=== PATIENT | female | born 1940 | race Two or more races ===

== ENCOUNTER 2016-11-09 19:45 | Inpatient (IN) | payer OTHER ==
[~2016-11-09] VITALS: Ht 149.9 cm; Wt 51.9 kg
[2016-11-09 08:15] VITALS: BP 139/97
[~2016-11-09 19:45] MED LIST: ALPR0.25 PO; ESOM40CA39 PO; LOSA25TA9 PO; METOPROLOL PO; TRAM50TA2 PO
[2016-11-09 20:15] VITALS: BP 139/97
[2016-11-09] MEDS ORDERED: LOSA25TA9 PO (21:15)
[2016-11-09 22:00] VITALS: BP 139/97
[2016-11-09 23:30] LABS: Basophils # (auto) 0 uL; Basophils % (auto) 0.8 % (0.0-2.0); CONDITION Y; Eosinophils # (auto) 0.3 uL; Hematocrit 38.2 % (36.0-46.0); Hemoglobin 12.5 g/dL (12.2-16.2); Lymphocytes # (auto) 2.1 uL; Lymphocytes % (auto) 32.9 % (10.0-50.0); Mean Corpuscular Hemoglobin 29.2 pg (28.0-32.0); Mean Corpuscular Hgb Conc. 32.7 g/dL (32.0-36.0); Mean Corpuscular Volume 89.2 fL (80.0-100.0); Mean Platelet Volume 7.7 fL (7.4-10.4); Monocytes # (auto) 0.5 uL; Monocytes % (auto) 7.5 % (0.0-12.0); Neutrophils # (auto) 3.5 uL; Neutrophils % (auto) 53.8 % (37.0-80.0); Platelet Count (auto) 285 10^3/uL (140-450); Red Cell Distribution Width 18.4 % (11.6-16.0); White Blood Cell 6.5 10^3/uL (4.4-10.8)
[2016-11-09 23:44] LABS: INR 1.1 (0.9-1.15); Partial Thromboplastin Time 29.9 sec (22.64-33.71)
[2016-11-09 23:54] LABS: Albumin 4.5 g/dL (3.4-5.0); BUN/Creatinine Ratio 37.3; Calcium 8.3 mg/dL (8.5-10.1); Magnesium 2.1 mg/dL (1.6-2.6); Potassium 4.2 mmol/L (3.5-5.1)
[2016-11-09 23:58] LABS: Bilirubin, Total 0.6 mg/dL (0.2-1.0); Total Protein 7.3 g/dL (6.4-8.2)
[2016-11-10 00:01] LABS: Urine Bilirubin Negative (Negative); Urine Blood Negative /uL (Negative); Urine Color Yellow (Yellow); Urine Glucose Normal (Normal); Urine Ketone Negative (Negative); Urine Nitrite Negative (Negative); Urine RBC <1 /hpf (0 - 4); Urine Squamous Epithelial Cell FEW /hpf (<5); Urine Urobilinogen Normal (Negative); Urine pH 6.5 (5.0-8.0)
[2016-11-10] MEDS ORDERED: ONDANSETRON HCL 4 MG/2 ML VIAL IV PRN (00:30)
[2016-11-10] MEDS ORDERED: MORPHINE SULF INJ 2 MG/ML SYRINGE 1ML IV PRN (00:30)
[2016-11-10] MEDS ORDERED: NITROGLYCERIN 0.4 MG SL TAB SL PRN (00:30)
[2016-11-10] MEDS: ALPRAZolam 0.25 MG TAB PO PRN ×2 (01:33→20:19)
[2016-11-10] MEDS: SODIUM CHLORIDE 0.9% 1,000 ML IV SCH ×2 (01:34→16:56)
[2016-11-10 05:00] VITALS: BP 131/77
[2016-11-10 07:16] LABS: Cholesterol 95 mg/dL (< 200); HDL Cholesterol 41 mg/dL (40-59); LDL Cholesterol 47 mg/dL (< 100); Triglycerides 71 mg/dL (< 150)
[2016-11-10 07:56] VITALS: BP 130/85
[2016-11-10] MEDS ORDERED: LIDOCAINE 2%HCL (LOCAL ANESTH.) INJ 20ML MDV ONE (08:59)
[2016-11-10] MEDS ORDERED: IODIXANOL 320MG/ML 100ML BTL IV ONE (09:03)
[2016-11-10] MEDS ORDERED: ANGIOMAX 250 MG VIAL IV ONE (09:28)
[2016-11-10] MEDS ORDERED: MIDAZOLAM HCL 1MG/1ML-2 ML VIAL ONE (09:28)
[2016-11-10] MEDS ORDERED: fentaNYL CITRATE 100 MCG/2 ML VL ONE (09:28)
[2016-11-10] MEDS ORDERED: SODIUM CHL 0.9% 0 ML ONE (09:29)
[2016-11-10] MEDS ORDERED: VERAPAMIL 2.5MG/ML INJ 2ML VIAL IV ONE (09:30)
[2016-11-10] MEDS ORDERED: hydrALAZINE HCL 20 MG/ML VL ONE (09:46)
[2016-11-10] MEDS ORDERED: ASPirin 81 mg TAB PO SCH (10:00)
[2016-11-10] MEDS ORDERED: FAMOTIDINE 20 MG TAB PO SCH (10:00)
[2016-11-10 12:05] VITALS: BP 132/80
[2016-11-10] MEDS: ENOXAPARIN SOD 40 MG/0.4 ML SYRINGE SC SCH (12:12)
[2016-11-10] MEDS: LOSARTAN POTASSIUM 25 MG TAB PO SCH (12:12)
[2016-11-10] MEDS: FAMOTIDINE 20 MG TAB PO SCH (12:12)
[2016-11-10] MEDS: ACETAMINOPHEN 325 MG TAB PO PRN (15:06)
[2016-11-10 16:59] VITALS: BP 126/79
[2016-11-10] MEDS: METOPROLOL TARTRATE 25 MG TAB PO SCH (21:27)
[2016-11-10 21:30] VITALS: BP 129/64
[2016-11-10] MEDS ORDERED: ATORVASTATIN 20 MG TAB PO SCH (22:00)
[2016-11-11] MEDS: ACETAMINOPHEN 325 MG TAB PO PRN (03:53)
[2016-11-11 05:39] VITALS: BP 137/73
[2016-11-11] MEDS: ALPRAZolam 0.25 MG TAB PO PRN (06:13)
[2016-11-11 06:36] LABS: Basophils # (auto) 0 uL; Basophils % (auto) 0.4 % (0.0-2.0); CONDITION Y; Eosinophils # (auto) 0.4 uL; Eosinophils % (auto) 5.2 % (0.0-7.0); Hematocrit 35.6 % (36.0-46.0); Hemoglobin 11.6 g/dL (12.2-16.2); Lymphocytes # (auto) 1.5 uL; Lymphocytes % (auto) 21.7 % (10.0-50.0); Mean Corpuscular Hemoglobin 29.4 pg (28.0-32.0); Mean Corpuscular Hgb Conc. 32.6 g/dL (32.0-36.0); Mean Corpuscular Volume 90.2 fL (80.0-100.0); Mean Platelet Volume 7.9 fL (7.4-10.4); Monocytes # (auto) 0.5 uL; Monocytes % (auto) 7.4 % (0.0-12.0); Neutrophils # (auto) 4.4 uL; Neutrophils % (auto) 65.3 % (37.0-80.0); Platelet Count (auto) 279 10^3/uL (140-450); Red Cell Distribution Width 18.3 % (11.6-16.0); White Blood Cell 6.8 10^3/uL (4.4-10.8)
[2016-11-11 06:46] LABS: Albumin 3.7 g/dL (3.4-5.0); BUN/Creatinine Ratio 32.8; Calcium 7.6 mg/dL (8.5-10.1)
[2016-11-11 06:58] LABS: Total Protein 6.5 g/dL (6.4-8.2)
[2016-11-11 09:00] VITALS: BP 147/50
[2016-11-11] MEDS: ENOXAPARIN SOD 40 MG/0.4 ML SYRINGE SC SCH (09:49)
[2016-11-11] MEDS: LOSARTAN POTASSIUM 25 MG TAB PO SCH (09:52)
[2016-11-11] MEDS: FAMOTIDINE 20 MG TAB PO SCH (09:53)
[2016-11-11] MEDS: METOPROLOL TARTRATE 25 MG TAB PO SCH (09:53)
[2016-11-11] MEDS: SODIUM CHLORIDE 0.9% 1,000 ML IV SCH (09:54)
[2016-11-11] MEDS ORDERED: ASPirin 81 mg TAB PO SCH (10:00)
[2016-11-11] MEDS ORDERED: THROAT LOZENGES(CEPASTAT) MT PRN (11:30)
[2016-11-11 13:00] VITALS: BP 153/69
[2016-11-11] MEDS ORDERED: ASPI81CH43 PO (14:57)
[2016-11-11] MEDS ORDERED: ATOR20TA50 PO (14:57)
[2016-11-11] MEDS ORDERED: MET25T PO (14:58)
== END 2016-11-11 20:08 | disposition home or self-care (01) | DRG 282 ==
LOC: TELE-WESTW 19:45
PROVIDERS: ADMIT Internal Medicine; ATTEND Internal Medicine
PROC: 4A023N7 Measurement of Cardiac Sampling and Pressure, Left Heart, Percutaneous Approach (ICD-10-PCS; principal; 2016-11-10)
PROC: B2111ZZ Fluoroscopy of Multiple Coronary Arteries using Low Osmolar Contrast (ICD-10-PCS; 2016-11-10)
DX: I21.4 Non-ST elevation (NSTEMI) myocardial infarction (principal); I11.9 Hypertensive heart disease without heart failure; I25.10 Atherosclerotic heart disease of native coronary artery without angina pectoris; F17.200 Nicotine dependence, unspecified, uncomplicated; F12.10 Cannabis abuse, uncomplicated; F32.9 Major depressive disorder, single episode, unspecified; M19.90 Unspecified osteoarthritis, unspecified site; J44.9 Chronic obstructive pulmonary disease, unspecified; Z80.8 Family history of malignant neoplasm of other organs or systems; Z82.49 Family history of ischemic heart disease and other diseases of the circulatory system; Z85.830 Personal history of malignant neoplasm of bone; Z90.49 Acquired absence of other specified parts of digestive tract; Z90.710 Acquired absence of both cervix and uterus; Z88.5 Allergy status to narcotic agent
CPT/HCPCS: 36415; 71010; 80053; 80061; 80307; 81001; 83735; 84443; 84484; 85025; 85610; 85730; 87081; 93005; 93458; 99152; J2250; Q9967

== ENCOUNTER 2016-12-29 09:02 | Observation (INO) | payer OTHER ==
[~2016-12-29] VITALS: Ht 152.4 cm; Wt 59.0 kg
[~2016-12-29 09:02] MED LIST changes: +ASPI81CH43 PO; +ATOR20TA50 PO; +MET25T PO
[2016-12-29 09:37] LABS: Basophils # (auto) 0.1 uL; Basophils % (auto) 1.3 % (0.0-2.0); Eosinophils # (auto) 0.2 uL; Eosinophils % (auto) 3.5 % (0.0-7.0); Hematocrit 41.1 % (36.0-46.0); Hemoglobin 13.6 g/dL (12.2-16.2); Lymphocytes # (auto) 1.2 uL; Lymphocytes % (auto) 21.6 % (10.0-50.0); Mean Corpuscular Hemoglobin 30.2 pg (28.0-32.0); Mean Corpuscular Hgb Conc. 33.2 g/dL (32.0-36.0); Mean Platelet Volume 6.7 fL (7.4-10.4); Monocytes # (auto) 0.4 uL; Neutrophils # (auto) 3.7 uL; Neutrophils % (auto) 66.6 % (37.0-80.0); Nucleated Red Blood Cells % 0.2 %; Platelet Count (auto) 333 10^3/uL (140-450); Red Cell Distribution Width 18.3 % (11.6-16.0); White Blood Cell 5.6 10^3/uL (4.4-10.8)
[2016-12-29 09:52] LABS: Albumin 4.8 g/dL (3.4-5.0); BUN/Creatinine Ratio 26.9; Calcium 9.1 mg/dL (8.5-10.1); Potassium 4.6 mmol/L (3.5-5.1)
[2016-12-29 09:54] LABS: Bilirubin, Total 0.9 mg/dL (0.2-1.0); Total Protein 8.1 g/dL (6.4-8.2)
[2016-12-29] MEDS ORDERED: SODIUM CHLORIDE 0.9% 1,000 ML IVB ONE (11:11)
[2016-12-29] MEDS ORDERED: ONDANSETRON HCL 4 MG/2 ML VIAL IV ONE ×3 (11:15→13:30)
[2016-12-29] MEDS ORDERED: KETOROLAC TROMETH 30 MG/ML 1ML VIAL IV ONE (11:15)
[2016-12-29 11:42] LABS: INR 1.09 (0.9-1.15); Partial Thromboplastin Time 29.2 sec (22.64-33.71); Prothrombin Time 11.9 sec (9.37-12.3)
[2016-12-29 11:49] LABS: Urine Bilirubin Negative (Negative); Urine Blood Negative /uL (Negative); Urine Color Yellow (Yellow); Urine Glucose Normal (Normal); Urine Ketone Negative (Negative); Urine Mucus FEW (None Seen); Urine Nitrite Negative (Negative); Urine RBC <1 /hpf (0 - 4); Urine Squamous Epithelial Cell FEW /hpf (<5); Urine Urobilinogen Normal (Negative)
[2016-12-29 13:13] VITALS: BP 178/76
[2016-12-29] MEDS ORDERED: MORPHINE SULF INJ 2 MG/ML SYRINGE 1ML IV ONE ×2 (13:30)
== END 2016-12-29 16:17 | disposition home or self-care (01) | DRG 694 ==
LOC: ER 09:02 → EDBD 09:02 → OVERFLOW 11:12 → ER 16:17
PROVIDERS: ADMIT Family Medicine; ATTEND Family Medicine
DX: N20.0 Calculus of kidney (principal); J44.9 Chronic obstructive pulmonary disease, unspecified; Z87.11 Personal history of peptic ulcer disease; I10 Essential (primary) hypertension; F41.9 Anxiety disorder, unspecified; Z90.710 Acquired absence of both cervix and uterus; Z83.3 Family history of diabetes mellitus; F17.210 Nicotine dependence, cigarettes, uncomplicated
CPT/HCPCS: 36415; 71010; 74176; 80053; 81001; 83735; 85025; 85610; 85730; 93005; 96374; 96375; 96376; 99285; G0378; J1885; J2270; J2405